=== PATIENT | female | born 1960 | race Caucasian/White ===

== ENCOUNTER 2018-04-08 12:36 | Emergency (ER) | payer SELFPAY ==
[2018-04-08] MEDS ORDERED: HYDROcodone/Acetaminophen 5/325 mg Tablet ONE (13:02)
--- NOTE | 2018-04-08 15:36 | RAD ---
THREE VIEWS LEFT WRIST: HISTORY: Fall. Pain. FINDINGS: Intercarpal and radiocarpal joint spaces are preserved. Displaced ulnar styloid fracture. Nondispla michael distal radius fracture with intraarticular extension. IMPRESSION: Distal radius and ulnar fracture. POS: [facility]
--- NOTE | 2018-04-08 15:36 | RAD ---
LEFT FOREARM 2 VIEWS: HISTORY: Fall. Pain. COMPARISON: None. FINDINGS: There is a distal radius and ulnar fracture which has been described on a radiograph report for the w rist. Additional fractures are not appreciated. IMPRESSION: Distal radius and ulnar fractures. POS: [facility]
--- NOTE | 2018-04-08 15:37 | RAD ---
FOUR VIEWS LEFT ELBOW: HISTORY: Fall. Pain. COMPARISON: None. FINDINGS: Joint space is preserved. No fracture or malalignment. No joint effusion. IMPRESSION: Unremarkable 4 views left elbow. POS: [facility]
== END 2018-04-08 14:25 | disposition home or self-care (01) ==
LOC: ERS 12:36
DX: S52.615A Nondisplaced fracture of left ulna styloid process, initial encounter for closed fracture (principal); S52.502A Unspecified fracture of the lower end of left radius, initial encounter for closed fracture; I10 Essential (primary) hypertension; F41.9 Anxiety disorder, unspecified; F32.9 Major depressive disorder, single episode, unspecified; F17.210 Nicotine dependence, cigarettes, uncomplicated; W01.0XXA Fall on same level from slipping, tripping and stumbling without subsequent striking against object, initial encounter
CPT/HCPCS: 29125